=== PATIENT | female | born 1945 | race Caucasian/White ===

== ENCOUNTER 2016-03-21 07:56 | Inpatient (IN) | payer OTHER ==
[~2016-03-21] VITALS: Ht 157.5 cm; Wt 46.0 kg
[2016-03-21] MEDS ORDERED: SODIUM CHLORIDE 0.9% 1,000 ML IV ONE (08:29)
[2016-03-21 09:10] LABS: Basophils # (auto) 0 uL; Basophils % (auto) 0.6 % (0.0-2.0); Eosinophils # (auto) 0.3 uL; Eosinophils % (auto) 6.8 % (0.0-7.0); Hematocrit 36.5 % (36.0-46.0); Hemoglobin 11.8 g/dL (12.2-16.2); Lymphocytes # (auto) 1.4 uL; Lymphocytes % (auto) 31.6 % (10.0-50.0); Mean Corpuscular Hemoglobin 29.6 pg (28.0-32.0); Mean Corpuscular Hgb Conc. 32.3 g/dL (32.0-36.0); Mean Corpuscular Volume 91.7 fL (80.0-100.0); Mean Platelet Volume 9.1 fL (7.4-10.4); Monocytes # (auto) 0.6 uL; Monocytes % (auto) 13.3 % (0.0-12.0); Neutrophils # (auto) 2.1 uL; Neutrophils % (auto) 47.7 % (37.0-80.0); Platelet Count (auto) 294 10^3/uL (140-450); Red Cell Distribution Width 16.6 % (11.6-16.0); White Blood Cell 4.4 10^3/uL (4.4-10.8)
[2016-03-21 09:19] LABS: INR 1.03 (0.9-1.15); Partial Thromboplastin Time 23.2 sec (22.64-33.71); Prothrombin Time 10.6 sec (9.37-12.3)
[2016-03-21 09:25] LABS: Albumin 3.5 g/dL (3.4-5.0); BUN/Creatinine Ratio 11.8; Bilirubin, Total 0.4 mg/dL (0.2-1.0); Calcium 8.4 mg/dL (8.5-10.1); Magnesium 2.2 mg/dL (1.6-2.6); Potassium 3.8 mmol/L (3.5-5.1); Total Protein 7.2 g/dL (6.4-8.2)
[2016-03-21] MEDS: SODIUM CHLORIDE 0.9% 1,000 ML IV SCH ×3 (12:06→21:27)
[2016-03-21] MEDS ORDERED: MORPHINE SULF INJ 2 MG/ML SYRINGE 1ML IV PRN ×2 (12:15)
[2016-03-21] MEDS ORDERED: ASPirin 81 mg TAB PO ONE (12:15)
[2016-03-21] MEDS ORDERED: NITROGLYCERIN 0.4 MG SL TAB SL PRN (12:15)
[2016-03-21] MEDS ORDERED: ACETAMINOPHEN 500 MG TAB PO PRN (12:15)
[2016-03-21] MEDS ORDERED: LORazepam 0.5 MG TAB PO PRN (12:15)
[2016-03-21] MEDS ORDERED: TEMAZEPAM 15 MG CAP PO PRN (12:15)
[2016-03-21] MEDS ORDERED: LACTULOSE 20Gm/30ML SOLN PO PRN (12:15)
[2016-03-21] MEDS ORDERED: HYDROcodone-ACET 5/325MG TAB PO PRN (12:15)
[2016-03-21] MEDS ORDERED: PROMETHAZINE HCL 25 MG/ML 1ML IV PRN (12:15)
[2016-03-21] MEDS: PANTOPRAZOLE 40 MG TAB PO SCH (12:58)
[2016-03-21] MEDS: NITROGLYCERIN 0.2MG/HR TOPICAL PATCH TD SCH (12:58)
[2016-03-21] MEDS: ENOXAPARIN SOD 30 MG/0.3 ML SYRINGE SC SCH (13:00)
[2016-03-21] MEDS: METOPROLOL TARTRATE 25 MG TAB PO SCH (22:00)
[2016-03-21] MEDS ORDERED: ATORVASTATIN 20 MG TAB PO SCH (22:00)
[2016-03-21 23:30] VITALS: BP 144/82
[2016-03-22] MEDS: SODIUM CHLORIDE 0.9% 1,000 ML IV SCH ×2 (04:32→10:24)
[2016-03-22] MEDS ORDERED: LEVO500T3 PO (05:25)
[2016-03-22] MEDS ORDERED: OMEP20CA5 PO (05:25)
[2016-03-22] MEDS ORDERED: NOR5T PO (05:25)
[2016-03-22] MEDS ORDERED: MET25T PO (05:25)
[2016-03-22] MEDS ORDERED: AMIO200T33 PO (05:25)
[2016-03-22] MEDS ORDERED: ASPI-231 PO (05:25)
[2016-03-22] MEDS ORDERED: DONE5TAB11 PO (05:25)
[2016-03-22] MEDS ORDERED: FOLI1TAB6 PO (05:25)
[2016-03-22] MEDS ORDERED: CLOP75TA28 PO (05:25)
[2016-03-22] MEDS ORDERED: OLAN5TAB30 PO (05:25)
[2016-03-22] MEDS ORDERED: LEVO25TA6 PO (05:25)
[2016-03-22] MEDS ORDERED: LOVA40TA72 PO (05:25)
[2016-03-22 05:29] VITALS: BP 101/60
[2016-03-22 06:21] LABS: Basophils # (auto) 0 uL; Basophils % (auto) 0.8 % (0.0-2.0); Eosinophils # (auto) 0.3 uL; Hematocrit 29.9 % (36.0-46.0); Hemoglobin 9.9 g/dL (12.2-16.2); Lymphocytes # (auto) 1.1 uL; Lymphocytes % (auto) 25.8 % (10.0-50.0); Mean Corpuscular Hemoglobin 30.2 pg (28.0-32.0); Mean Corpuscular Volume 91.5 fL (80.0-100.0); Mean Platelet Volume 8.8 fL (7.4-10.4); Monocytes # (auto) 0.5 uL; Monocytes % (auto) 12.5 % (0.0-12.0); Neutrophils # (auto) 2.3 uL; Neutrophils % (auto) 54.9 % (37.0-80.0); Platelet Count (auto) 239 10^3/uL (140-450); White Blood Cell 4.2 10^3/uL (4.4-10.8)
[2016-03-22 06:49] LABS: Albumin 2.7 g/dL (3.4-5.0); BUN/Creatinine Ratio 12.7; Bilirubin, Total 0.2 mg/dL (0.2-1.0); Calcium 7.5 mg/dL (8.5-10.1); Potassium 3.3 mmol/L (3.5-5.1); Total Protein 5.6 g/dL (6.4-8.2)
[2016-03-22] MEDS ORDERED: LEVOTHYROXINE SODIUM 88 MCG TAB PO SCH (07:00)
[2016-03-22 08:57] VITALS: BP 103/60
[2016-03-22] MEDS: METOPROLOL TARTRATE 25 MG TAB PO SCH (10:00)
[2016-03-22] MEDS: NITROGLYCERIN 0.2MG/HR TOPICAL PATCH TD SCH (10:00)
[2016-03-22] MEDS ORDERED: ASPirin 81 mg TAB PO SCH (10:00)
[2016-03-22] MEDS: PANTOPRAZOLE 40 MG TAB PO SCH (10:08)
[2016-03-22 11:51] VITALS: BP 102/58
[2016-03-22] MEDS ORDERED: D5W/SOD CHL 0.45% 1,000 ML IV SCH (13:00)
[2016-03-22] MEDS ORDERED: POTASSIUM CHL 20 Meq TABLET PO ONE (13:00)
[2016-03-22] MEDS: ENOXAPARIN SOD 30 MG/0.3 ML SYRINGE SC SCH (13:00)
[2016-03-22] MEDS ORDERED: ALBUMIN 25% 100 ML IV ONE (13:30)
[2016-03-22 16:23] VITALS: BP 109/57
[2016-03-25 10:06] LABS: Vitamin D-2 25-Hydroxy 2.2 ng/mL (.)
== END 2016-03-22 16:05 | disposition short-term general hospital (02) | DRG 682 ==
LOC: EDUNIT# 07:56 → ER 08:01 → TELE 08:02 → TELE-WESTW 23:28
PROVIDERS: ADMIT Internal Medicine; ATTEND Family Medicine
DX: N17.9 Acute kidney failure, unspecified (principal); I21.4 Non-ST elevation (NSTEMI) myocardial infarction; E87.0 Hyperosmolality and hypernatremia; N18.9 Chronic kidney disease, unspecified; I25.10 Atherosclerotic heart disease of native coronary artery without angina pectoris; I12.9 Hypertensive chronic kidney disease with stage 1 through stage 4 chronic kidney disease, or unspecified chronic kidney disease; E03.9 Hypothyroidism, unspecified; I49.5 Sick sinus syndrome; F02.80 Dementia in other diseases classified elsewhere, unspecified severity, without behavioral disturbance, psychotic disturbance, mood disturbance, and anxiety; I25.2 Old myocardial infarction; G30.9 Alzheimer's disease, unspecified; Z95.0 Presence of cardiac pacemaker; Z88.0 Allergy status to penicillin; Z98.51 Tubal ligation status; Z82.49 Family history of ischemic heart disease and other diseases of the circulatory system
CPT/HCPCS: 36415; 71010; 76775; 80053; 80061; 80164; 82306; 82550; 82570; 83735; 83970; 84100; 84156; 84300; 84443; 84484; 85025; 85379; 85610; 85652; 85730; 86141; 86850; 86900; 86901; 93005; 93306; 94761; 96360; 96361